=== PATIENT | female | born 1945 | race Caucasian/White ===

== ENCOUNTER → 2025-05-07 07:24 | Outpatient (REF) | payer MEDICARE, BC, SELFPAY ==
[2025-05-07 08:23] LABS: Hematocrit 38.6 % (37.0-47.0); Hemoglobin 12.9 g/dL (12.0-16.0); Mean Corp Hgb Conc. 33.4 g/dL (33.0-37.0); Mean Corpuscular Volume 86.5 fL (81.0-99.0); Nucleated Red Blood Cells % 0 %; Platelet Count 272 10^3/uL (130-400); Red Cell Dist. Width 13.8 % (11.5-14.5)
[2025-05-07 09:02] LABS: ALT (SGPT) 26 U/L (0-35); AST (SGOT) 29 U/L (14-36); Albumin 4.4 g/dl (3.5-5.0); Alkaline Phosphatase 183 U/L (38-126); Blood Urea Nitrogen 23 mg/dl (7-17); Calcium 9.7 mg/dl (8.4-10.2); Carbon Dioxide 25 mmol/L (22-30); Chloride 105 mmol/L (98-107); Glucose 100 mg/dl (70-99); HDL Cholesterol 66 mg/dl; LDL Cholesterol, Calculated 53 mg/dl; Potassium 4.4 mmol/L (3.5-5.1); Sodium 140 mmol/L (135-145); Total Protein 6.8 g/dl (6.3-8.2); Very Low Density Lipoprotein 20 mg/dl (0-30); eGFR > 60.00
[2025-05-07 09:13] LABS: Vitamin D, 25-OH*** 75.1 ng/mL (30-80)
[2025-05-07 12:07] LABS: Urine Character Slightly Cloudy (Clear)
[2025-05-07 12:20] LABS: Glycohemoglobin (HgbA1c) 6.3 % (4.0-5.6)
[2025-05-07 13:18] LABS: Urine Red Blood Cell 0-2 /HPF (0-2); Urine Squamous Cell 21-25 /LPF (Few); Urine White Cell 21-25 /HPF (0-5)
== END ==
LOC: REG 07:24
PROVIDERS: ATTENDING PHYSICIAN Internal Medicine; REFERRING PHYSICIAN Internal Medicine Cardiovascular Disease
DX: Z00.00 Encounter for general adult medical examination without abnormal findings (principal); I10 Essential (primary) hypertension; K21.00 Gastro-esophageal reflux disease with esophagitis, without bleeding; E78.5 Hyperlipidemia, unspecified; R73.09 Other abnormal glucose; D55.9 Anemia due to enzyme disorder, unspecified; Z79.899 Other long term (current) drug therapy
CPT/HCPCS: 36415; 80053; 80061; 81003; 81015; 82306; 83036; 84443; 85025

== ENCOUNTER → 2025-05-20 15:31 | Outpatient (REF) | payer MEDICARE, BC, SELFPAY | LOC: RCS 15:31 | PROVIDERS: ATTENDING PHYSICIAN Internal Medicine Cardiovascular Disease; FAMILY PHYSICIAN Internal Medicine | DX: I35.1 Nonrheumatic aortic (valve) insufficiency (principal); E78.5 Hyperlipidemia, unspecified; R93.1 Abnormal findings on diagnostic imaging of heart and coronary circulation; N39.0 Urinary tract infection, site not specified | CPT/HCPCS: 93306 ==

== ENCOUNTER → 2025-05-21 09:14 | Outpatient (REF) | payer MEDICARE, BC, SELFPAY ==
[2025-05-21 09:43] LABS: Urine Character Slightly Cloudy (Clear)
[2025-05-21 10:20] LABS: Urine Red Blood Cell 0-2 /HPF (0-2); Urine White Cell 40-50 /HPF (0-5)
== END ==
LOC: REG 09:14
PROVIDERS: ATTENDING PHYSICIAN Internal Medicine
DX: N39.0 Urinary tract infection, site not specified (principal)
CPT/HCPCS: 81003; 81015; 87077; 87086; 87186

== ENCOUNTER → 2025-05-24 07:58 | Outpatient (REF) | payer MEDICARE, BC, SELFPAY | LOC: RCS 07:58 | PROVIDERS: ATTENDING PHYSICIAN Internal Medicine Cardiovascular Disease; FAMILY PHYSICIAN Internal Medicine | DX: I35.1 Nonrheumatic aortic (valve) insufficiency (principal); E78.5 Hyperlipidemia, unspecified; R93.1 Abnormal findings on diagnostic imaging of heart and coronary circulation | CPT/HCPCS: 93017; 93350 ==